=== PATIENT | female | born 1985 | race African-American/Black ===

== ENCOUNTER 2017-01-25 17:20 | Emergency (ER) | payer OTHER ==
[~2017-01-25] VITALS: Ht 170.2 cm; Wt 77.6 kg
--- NOTE | 2017-01-25 17:47 | PHYS DOC ---
Past History Past Medical History: No Pertinent History Past Surgical History: No Surgical History Alcohol Use: Rarely Drug Use: None Adult General Chief Complaint Chief Complaint: cough HPI HPI 31-year-old female presenting with a cough for the last 2 days. It is nonproductive. She denies fevers chills. She reports her remote history of being diagnosed with asthma but has never had an asthma exacerbation. No alleviating or exacerbating factors present. Patient has not tried anything at home for her cough. She denies any other associated symptoms. Review of systems is negative for fevers chills abdominal pain chest pain. All other review of systems is negative unless otherwise noted in history of present illness. ED course: 31-year-old female presenting to the emergency department today with a dry nonproductive cough. Patient is afebrile here in the emergency department. I ordered the patient a nebulizer therapy and a chest x-ray along with test. The patient was signed out to Dr. Tejada at 6 PM with plans to follow-up on chest x-ray. Review of Systems Review of Systems SEE ABOVE. Physical Exam Physical Exam Constitutional: Well developed, well nourished, no acute distress, non-toxic appearance. [] HENT: Normocephalic, atraumatic, bilateral external ears normal, oropharynx moist, no oral exudates, nose normal. Eyes: PERRLA, EOMI, conjunctiva normal, no discharge. [] Neck: Normal range of motion, no tenderness, supple, no stridor. [] Cardiovascular:Heart rate regular rhythm, no murmur [] Lungs & Thorax: Minimal wheezing bilaterally. Abdomen: Bowel sounds normal, soft, no tenderness, no masses, no pulsatile masses. [] Skin: Warm, dry, no erythema, no rash. Back: No tenderness, no CVA tenderness. [] Extremities: No tenderness, no cyanosis, no clubbing, ROM intact, no edema. [] Neurologic: Alert and oriented X 3, normal motor function, normal sensory function, no focal deficits noted. Psychologic: Affect normal, judgement normal, mood normal. [] EKG EKG [] Radiology/Procedures Radiology/Procedures [] Course & Med Decision Making Course & Med Decision Making Pertinent Labs and Imaging studies reviewed. (See chart for details) [] Dragon Disclaimer Dragon Disclaimer This chart was dictated in whole or in part using Voice Recognition software in a busy, high-work load, and often noisy Emergency Department environment. It may contain unintended and wholly unrecognized errors or omissions. Departure Departure: Impression: Primary Impression: Cough Referrals: BELLE PARRY DO (PCP) Patient Instructions: Cough, Adult FERNANDA GUERRERO MD Jan 25, 2017 17:46
[2017-01-25] MEDS ORDERED: IPRATRPIUM/ALBUTEROL 0.5/2.5MG 3 ML NEBU. NEB ONE (18:00)
[2017-01-25] MEDS ORDERED: GUAI1TBM10 PO (18:35)
[2017-01-25] MEDS ORDERED: ALBU6.7H IH (18:35)
[2017-01-25 18:50] VITALS: BP 120/66
--- NOTE | 2017-01-26 08:56 | RAD ---
PA and lateral chest radiographs 01/25/2017. Clinical History: Cough chest pain for 2 days. PA and lateral digital radiographs of the chest were obtained. No previous studies are available for comparison. The cardiac and mediastinal silhouettes are within normal limits in size and configuration. No pulmonary infiltrate is seen. No pleural effusion or pneumothorax is noted. The osseous structures are grossly intact. Impression: No radiographic evidence of active cardiopulmonary disease.
== END 2017-01-25 18:50 | disposition home or self-care (01) ==
LOC: ER 17:20
DX: R05 Cough (principal); J45.909 Unspecified asthma, uncomplicated
CPT/HCPCS: 71020; 81025; 94640; 99284; J7620

== ENCOUNTER 2019-04-10 13:14 | Emergency (ER) | payer OTHER ==
[~2019-04-10] VITALS: Ht 167.6 cm; Wt 72.6 kg
[~2019-04-10 13:14] MED LIST: ALBU2.5V8 IH; GUAI1TBM10 PO
[2019-04-10 13:22] VITALS: BP 148/101
[2019-04-10] MEDS ORDERED: CYCL-331 PO (13:32)
--- NOTE | 2019-04-10 13:32 | PHYS DOC ---
Past History Additional Past Medical Histor: PCOS Past Surgical History: No Surgical History Alcohol Use: Rarely Drug Use: None Adult General Chief Complaint Chief Complaint: UPPER EXTREMITY PAIN HPI HPI Patient is a 33-year-old female who presents to the emergency department for evaluation. She states for the past 4-5 days, she has had left shoulder/trapezius area pain, radiating towards her left shoulder. The pain is worsened by movements. She denies any injuries, fevers, or numbness, has not had any weakness,, and denies any chest pain or shortness of breath. Movement and palpation of the affected area worsen her pain. There are no alleviating factors to her symptoms. Review of Systems Review of Systems Constitutional: Denies fever or chills [] Eyes: Denies change in visual acuity, redness, or eye pain [] HENT: Denies nasal congestion or sore throat [] Respiratory: Denies cough or shortness of breath [] Cardiovascular:The patient denies any shortness of breath, chest pain, palpitations, or orthopnea [] GI: Denies abdominal pain, nausea, vomiting, bloody stools or diarrhea [] : Denies dysuria or hematuria. Denies . [] Musculoskeletal: Denies back pain or joint pain , except as noted in the history of present illness[] Integument: Denies rash or skin lesions [] Neurologic: Denies headache, focal weakness or sensory changes [] Allergies Allergies Allergies Coded Allergies Type Severity Reaction Last Updated Verified No Known Drug Allergies 01/25/17 No Physical Exam Physical Exam PHYSICAL EXAM: CONSTITUTIONAL: Well developed, well nourished HEAD: normocephalic, atraumatic EENT: PERRL, EOMI. Conjunctivae normal color, sclerae non-icteric; moist mucous membranes. NECK: Supple, non-tender; no meningismus.There is full, painless range of motion of the cervical spine, without any focal bony midline tenderness to palpation. LUNGS: Lungs CTA, breathing even and unlabored. Normal air movement. HEART: Regular rate and rhythm, no murmur CHEST: No deformity; non-tender ABDOMEN: The abdomen is soft, and non-tender, no masses or bruits. EXTREM: There is mild tenderness to palpation of the left trapezius muscle area, extending towards the left shoulder, although range of motion in the left shoulder is normal, with full external and internal rotation, abduction, and adduction. There is a strong radial pulse on the left. Normal ROM; no deformity, no calf tenderness. Normal pulses palpable in all extremities. There is no pedal edema. SKIN: No rash; no diaphoresis NEURO: Alert; normal speech and cognition; CN's grossly intact; strength grossly intact without focal deficit. Sensation is normal. BACK: No CVA TTP. EKG EKG [] Radiology/Procedures Radiology/Procedures [] Course & Med Decision Making Course & Med Decision Making Discussed suspected clinical diagnosis of muscle strain, radiculopathy is considered less likely. I discussed expectant and symptomatic management, use of NSAIDs, heat, muscle relaxers (sedation precautions were provided), and return precautions were discussed in detail. Dragon Disclaimer Dragon Disclaimer This electronic medical record was generated, in whole or in part, using a voice recognition dictation system. Departure Departure: Impression: Primary Impression: Shoulder pain Disposition: HOME, SELF-CARE Condition: STABLE Patient Instructions: Shoulder Exercises, Generic, SportsMed, Shoulder Sprain Additional Instructions: Ibuprofen 400-600 mg every 6 hours may help improve your symptoms. Applying a heating pad to the affected area may help improve your symptoms. The prescribed medications may cause drowsiness-use caution while taking. Follow-up with orthopedics at [facility], for further evaluation if symptoms persist. Scripts Cyclobenzaprine Hcl (CYCLOBENZAPRINE HCL) 10 Mg Tablet 1 TAB PO TID for muscle spasm, #20 TAB Prov: YAYA JARA MD 04/10/19 YAYA JARA MD Apr 10, 2019 13:32
== END 2019-04-10 13:38 | disposition home or self-care (01) ==
LOC: ER 13:19
DX: M25.512 Pain in left shoulder (principal)
CPT/HCPCS: 99283